=== PATIENT | female | born 2000 | race Caucasian/White ===

== ENCOUNTER 2018-09-26 18:28 | Emergency (ER) | payer OTHER ==
[~2018-09-26] VITALS: Ht 160 cm; Wt 106.8 kg
[2018-09-26] MEDS ORDERED: BUSP10TA (18:37)
[2018-09-26] MEDS ORDERED: TRI-TAB16 (18:37)
[2018-09-26] MEDS ORDERED: ESCI20TA (18:37)
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
[2018-09-26] MEDS ORDERED: IBUPROFEN 600 MG TAB PO ONE (20:00)
[2018-09-26 20:22] LABS: HEMATOCRIT 38.9 % (36.0-47.0); HEMOGLOBIN 13.7 g/dl (12.0-15.5); MEAN CORPUSCULAR HEMOGLOBIN 29.9 pg (27.0-33.0); MEAN CORPUSCULAR HGB CONC 35.2 g/dl (32.0-36.5); MEAN CORPUSCULAR VOLUME 84.9 fl (80.0-96.0); PLATELET COUNT, AUTOMATED 312 10^3/uL (150-450); RED BLOOD COUNT 4.58 10^6/uL (4.00-5.40); WHITE BLOOD COUNT 12.3 10^3/uL (4.0-10.0)
[2018-09-26 20:27] LABS: BLOOD UREA NITROGEN 12 MG/DL (7-18); CREATININE FOR GFR 0.74 MG/DL (0.55-1.30); GLUCOSE, FASTING 88 MG/DL (70-100); SODIUM LEVEL 142 MEQ/L (136-145)
[2018-09-26 20:28] LABS: CALCIUM LEVEL 9.2 MG/DL (8.5-10.1); CARBON DIOXIDE LEVEL 28 MEQ/L (21-32); CHLORIDE LEVEL 107 MEQ/L (98-107); POTASSIUM SERUM 4.1 MEQ/L (3.5-5.1)
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
[2018-09-26 22:02] VITALS: BP 124/81
== END 2018-09-26 22:05 | disposition home or self-care (01) ==
LOC: M ED 18:28
DX: S16.1XXA Strain of muscle, fascia and tendon at neck level, initial encounter (principal); S09.90XA Unspecified injury of head, initial encounter; R55 Syncope and collapse; T14.8XXA Other injury of unspecified body region, initial encounter; V49.49XA Driver injured in collision with other motor vehicles in traffic accident, initial encounter; Y92.410 Unspecified street and highway as the place of occurrence of the external cause; F33.9 Major depressive disorder, recurrent, unspecified; F41.9 Anxiety disorder, unspecified; Z88.0 Allergy status to penicillin; Z88.1 Allergy status to other antibiotic agents; Z79.899 Other long term (current) drug therapy; Z79.3 Long term (current) use of hormonal contraceptives

== ENCOUNTER → 2018-10-28 | Outpatient (CLI) | payer OTHER ==
[~2018-10-28] MED LIST: BUSP10TA; ESCI20TA; TRI-TAB16
[2018-10-28 18:40] LABS: FREE T4 0.9 NG/DL (0.78-1.33); THYROID STIMULATING HORMONE 0.686 uIU/ML (0.463-3.98)
[2018-10-31 00:06] LABS: DEHYDROEPIANDROSTERONE SULFATE 187.3 ug/dL (110.0-433.2); INSULIN LEVEL 23.9 uIU/mL (2.6-24.9); TESTOSTERONE FREE (DIRECT) 1.6 pg/mL (Not Estab.)
== END ==
LOC: M SMT 11:58
PROVIDERS: ATTEND Advanced Practice Midwife
DX: E28.2 Polycystic ovarian syndrome (principal)

== ENCOUNTER → 2019-04-30 | Outpatient (CLI) | payer BC ==
[2019-04-30 18:51] LABS: HEMOGLOBIN A1c 5.4 %
[2019-04-30 19:05] LABS: FREE T4 0.88 NG/DL (0.78-1.33); THYROID STIMULATING HORMONE 1.49 uIU/ML (0.463-3.98)
[2019-04-30 19:06] LABS: PROLACTIN 6.5 NG/ML
== END ==
LOC: M PLALAB 14:23
PROVIDERS: ATTEND Advanced Practice Midwife
DX: N92.6 Irregular menstruation, unspecified (principal)

== ENCOUNTER → 2019-04-30 | Outpatient (REF) | payer BC | LOC: M SFHCWAGY 16:56 | PROVIDERS: ATTEND Advanced Practice Midwife | DX: R10.2 Pelvic and perineal pain (principal) ==

== ENCOUNTER → 2019-05-22 | Outpatient (CLI) | payer BC ==
--- NOTE | 2019-05-26 19:40 | REP ---
Clinical: Pelvic pain. Technique: Transabdominal pelvic ultrasound followed by transvaginal examination for better evaluation of the endometrium and adnexa. Findings: Bladder is unremarkable and measures 15.7 x 9.4 x 10.0 cm . Normal anteverted uterus measures 7.4 x 3.9 x 4.0 cm. Endometrial complex measures 7.0 mm thickness. No discrete uterine or endometrial abnormalities appreciated. Bilateral ovaries are normal in appearance and vascularity without torsion and demonstrate few scattered sub centimeter follicles. Right ovary measures 3.9 x 2.5 x 3.8 cm (RI 0.59). Left ovary measures 3.9 x 1.8 x 2.3 cm (RI 0.72). No pelvic fluid or adnexal mass lesion. Impression: Normal pelvic ultrasound Electronically Signed by Chano Subramanian MD 05/26/2019 07:32 P
== END ==
LOC: M WHC 15:09
PROVIDERS: ATTEND Advanced Practice Midwife
DX: R10.2 Pelvic and perineal pain (principal)

== ENCOUNTER → 2019-09-01 | Outpatient (REF) | payer BC | LOC: M LAB REF 16:45 | PROVIDERS: ATTEND Physician Assistant | DX: N39.0 Urinary tract infection, site not specified (principal) ==

== ENCOUNTER → 2019-11-06 | Outpatient (CLI) | payer BC ==
[2019-11-07 14:11] LABS: HEMOGLOBIN A1c 5.1 %
== END ==
LOC: M PLALAB 12:26
PROVIDERS: ATTEND Advanced Practice Midwife
DX: E28.2 Polycystic ovarian syndrome (principal)

== ENCOUNTER → 2020-04-27 | Outpatient (CLI) | payer BC ==
[~2020-04-27] MED LIST changes: -ESCI20TA; +ESCI20TA16; +ISOVUE-370 76% 100ML VIAL As Ordered ONE
--- NOTE | 2020-04-27 16:57 | REP ---
INDICATION: IRREGULAR PERIODS. COMPARISON: None. TECHNIQUE: The endometrium was cannulated and contrast was injected by the attending pipe stem repairer Dr. Welsh. Fluoroscopic spot films were acquired by [facility] Toml[facility], under the direct supervision of Dr. Downey. Images reviewed prior with Dr. Downey to dictation. FINDINGS: Fluoroscopy spot radiographs document filling of a normal endometrial cavity. There is normal isthmic and ampullary fallopian tube opacification, and bilateral tubal patency was documented. IMPRESSION: Normal hysterosalpingogram with bilateral tubal patency documented. 0.6 minutes of fluoroscopy time was utilized for this procedure. Some fluoroscopic images are performed with last image hold technology. These images require no additional radiation. <Electronically signed by More Tomlinson > 04/27/20 [id number] <Electronically signed by Dilan Downey > 04/27/20 [id number]
--- NOTE | 2020-04-29 14:52 | ROOPDOC ---
[facility] Report Of Operation Report of Operation DATE OF PROCEDURE: 04/29/20 PREPROCEDURE DIAGNOSES: primary infertility. POSTPROCEDURE DIAGNOSES: same. PROCEDURE: hysterosalpingogram. SURGEON: Mateo Rush MD ANESTHESIA: none. ESTIMATED BLOOD LOSS: minimal COMPLICATIONS: none. FINDINGS: normal fill and spill from both fallopian tubes. normal endometrial cavity PROCEDURE NOTE: Pt placed in dorsal lithotomy position. A speculum was placed in the vagina. The cervix was prepped with Betadine. The anterior lip of the cervix was grasped with a tenaculum. An HSG catheter was inserted through the internal os. A fluoroscope was positioned over the patient. A radiology colleague was present. Dye was instilled into the uterus under fluoroscopic guidance. bilateral fill and spill of fallopian tubes was readily observed. All instruments were removed. The patient tolerated the procedure well.. MATEO RUSH MD Apr 29, 2020 14:43
== END ==
LOC: M RADPRO 11:56
PROVIDERS: ATTEND Specialist
DX: N92.6 Irregular menstruation, unspecified (principal)
CPT/HCPCS: 58340; 74740; Q9967

== ENCOUNTER → 2020-05-06 | Outpatient (CLI) | payer BC ==
[~2020-05-06] MED LIST changes: -ISOVUE-370 76% 100ML VIAL As Ordered ONE
[2020-05-06 14:15] LABS: C REACTIVE PROTEIN QUANTITATIV < 0.30 MG/DL (0.00-0.30); RHEUMATOID FACTOR QUANT < 10.0 IU/ML (<15.0)
== END ==
LOC: M PLALAB 10:17
PROVIDERS: ATTEND Physician Assistant
DX: M54.5 Low back pain (principal)

== ENCOUNTER → 2020-06-01 | Outpatient (CLI) | payer BC ==
--- NOTE | 2020-06-01 09:46 | REPVR ---
PROCEDURE INFORMATION: Exam: MR Cervical Spine Without Contrast Exam date and time: 06/01/2020 9:28 AM Age: 19 years old Clinical indication: Neck pain. TECHNIQUE: Imaging protocol: Multiplanar magnetic resonance images of the cervical spine without contrast. COMPARISON: CT Spine,cervical w/o contrast 09/26/2018 7:21 PM FINDINGS: Vertebrae: Unremarkable. Spinal cord: Normal signal. No cord compression. C2-C3: No significant disc disease. No significant spinal stenosis. C3-C4: No significant disc disease. No significant spinal stenosis. C4-C5: No significant disc disease. No significant spinal stenosis. C5-C6: No significant disc disease. No significant spinal stenosis. C6-C7: No significant disc disease. No significant spinal stenosis. C7-T1: No significant disc disease. No significant spinal stenosis. Soft tissues: Unremarkable. IMPRESSION: Unremarkable spine. Electronically signed by: Issac Silva On 06/01/2020 09:46:22 AM
== END ==
LOC: M PLARAD 08:29
PROVIDERS: ATTEND Physician Assistant
DX: M50.323 Other cervical disc degeneration at C6-C7 level (principal)

== ENCOUNTER 2020-06-05 12:25 | Emergency (ER) | payer BC ==
[~2020-06-05] VITALS: Ht 160 cm; Wt 108.5 kg
[2020-06-05 12:26] VITALS: BP 153/82
[2020-06-05] MEDS ORDERED: LETR2.5T2 (12:34)
[2020-06-05] MEDS ORDERED: METF500T13 PO (12:34)
[2020-06-05] MEDS ORDERED: DOXY100T27 PO (12:34)
[2020-06-05] MEDS ORDERED: BACTRIM 160MG/800MG DS TAB PO ONE (12:45)
[2020-06-05] MEDS ORDERED: BACT800T5 PO (12:49)
== END 2020-06-05 14:01 | disposition home or self-care (01) ==
LOC: M ED 12:25
DX: L02.221 Furuncle of abdominal wall (principal); L03.311 Cellulitis of abdominal wall; E11.9 Type 2 diabetes mellitus without complications; Z79.84 Long term (current) use of oral hypoglycemic drugs; Z79.2 Long term (current) use of antibiotics

== ENCOUNTER → 2021-02-19 | Outpatient (CLI) | payer BC ==
[~2021-02-19] MED LIST changes: +BACT800T5 PO; +DOXY100T27 PO; +LETR2.5T2; +METF500T13 PO
== END ==
LOC: M LAB 11:05
PROVIDERS: ATTEND Allergy & Immunology
DX: R10.84 Generalized abdominal pain (principal); R53.81 Other malaise

== ENCOUNTER → 2021-12-12 | Outpatient (CLI) | payer BC ==
[~2021-12-12] MED LIST changes: +CLAR10CA3 PO; +FLUO40CA; +MONT10TA97
== END ==
LOC: M PLALAB 12:19
PROVIDERS: ATTEND Physician Assistant
DX: O20.0 Threatened abortion (principal); Z3A.00 Weeks of gestation of pregnancy not specified

== ENCOUNTER → 2021-12-27 | Outpatient (REF) | payer BC ==
[2021-12-27 17:39] LABS: GC DNA AMPLIFICATION NEGATIVE (NEGATIVE)
== END ==
LOC: M SFHCWAGY 15:08
PROVIDERS: ATTEND Specialist
DX: Z34.01 Encounter for supervision of normal first pregnancy, first trimester (principal)

== ENCOUNTER → 2022-01-03 | Outpatient (CLI) | payer BC ==
[2022-01-03 15:43] LABS: HEMATOCRIT 38.2 % (36.0-47.0); HEMOGLOBIN 12.9 g/dl (12.0-15.5); MEAN CORPUSCULAR HEMOGLOBIN 29.3 pg (27.0-33.0); MEAN CORPUSCULAR HGB CONC 33.8 g/dl (32.0-36.5); MEAN CORPUSCULAR VOLUME 86.8 fl (80.0-96.0); PLATELET COUNT, AUTOMATED 319 10^3/uL (150-450)
[2022-01-03 19:10] LABS: HEPATITIS C VIRUS ABY INDEX < 0.0 INDEX (<0.8); HIV 1&2 SCREEN CENTAUR NEGATIVE (NEGATIVE)
== END ==
LOC: M PLALAB 12:17
PROVIDERS: ATTEND Specialist
DX: Z36.89 Encounter for other specified antenatal screening (principal)

== ENCOUNTER → 2022-01-25 | Outpatient (CLI) | payer OTHER | LOC: M PLALAB 14:13 | PROVIDERS: ATTEND Advanced Practice Midwife | DX: Z34.81 Encounter for supervision of other normal pregnancy, first trimester (principal) ==

== ENCOUNTER → 2022-03-22 | Outpatient (CLI) | payer OTHER | LOC: M WHC 14:32 | PROVIDERS: ATTEND Obstetrics & Gynecology | DX: Z34.92 Encounter for supervision of normal pregnancy, unspecified, second trimester (principal); Z3A.19 19 weeks gestation of pregnancy ==

== ENCOUNTER → 2022-04-19 | Outpatient (CLI) | payer OTHER | LOC: M RAD 16:24 | PROVIDERS: ATTEND Advanced Practice Midwife | DX: Z34.02 Encounter for supervision of normal first pregnancy, second trimester (principal); Z3A.23 23 weeks gestation of pregnancy ==

== ENCOUNTER → 2022-05-19 | Outpatient (CLI) | payer OTHER ==
[2022-05-19 17:13] LABS: HEMATOCRIT 38.1 % (36.0-47.0); HEMOGLOBIN 12.8 g/dl (12.0-15.5); MEAN CORPUSCULAR HEMOGLOBIN 29.8 pg (27.0-33.0); MEAN CORPUSCULAR HGB CONC 33.6 g/dl (32.0-36.5); MEAN CORPUSCULAR VOLUME 88.6 fl (80.0-96.0); PLATELET COUNT, AUTOMATED 323 10^3/uL (150-450); WHITE BLOOD COUNT 9.8 10^3/uL (4.0-10.0)
[2022-05-19 19:02] LABS: GC DNA AMPLIFICATION NEGATIVE (NEGATIVE)
== END ==
LOC: M PLALAB 14:56
PROVIDERS: ATTEND Obstetrics & Gynecology
DX: Z34.92 Encounter for supervision of normal pregnancy, unspecified, second trimester (principal); Z3A.00 Weeks of gestation of pregnancy not specified

== ENCOUNTER → 2022-06-14 | Outpatient (CLI) | payer OTHER | LOC: M WHC 14:27 | PROVIDERS: ATTEND Obstetrics & Gynecology | DX: Z36.2 Encounter for other antenatal screening follow-up (principal); Z3A.30 30 weeks gestation of pregnancy ==

== ENCOUNTER 2022-07-18 17:45 | Outpatient (CLI) | payer OTHER ==
[~2022-07-18] VITALS: Ht 160 cm; Wt 127.0 kg
[~2022-07-18 17:45] MED LIST changes: -PRENMIS3 PO; -TUMS750C22 PO
[2022-07-18 18:26] VITALS: BP 110/71
[2022-07-18] MEDS ORDERED: TUMS750C22 PO (18:28)
[2022-07-18] MEDS ORDERED: PRENMIS3 PO (18:28)
[2022-07-18] MEDS ORDERED: HOME MED LIST COMPLETE! XX SCH (18:30)
[2022-07-18] MEDS ORDERED: ACETAMINOPHEN 500 MG TAB PO ONE (20:00)
[2022-07-18 21:00] LABS: HEMATOCRIT 35.7 % (36.0-47.0); HEMOGLOBIN 12.2 g/dl (12.0-15.5); MEAN CORPUSCULAR HEMOGLOBIN 29.3 pg (27.0-33.0); MEAN CORPUSCULAR HGB CONC 34.2 g/dl (32.0-36.5); MEAN CORPUSCULAR VOLUME 85.8 fl (80.0-96.0); PLATELET COUNT, AUTOMATED 268 10^3/uL (150-450); RED BLOOD COUNT 4.16 10^6/uL (4.00-5.40); WHITE BLOOD COUNT 9.6 10^3/uL (4.0-10.0)
[2022-07-18 21:07] LABS: TOTAL PROTEIN,RANDOM URINE 13.2 MG/DL (0.0-14.0)
[2022-07-18 21:12] LABS: CREATININE,RANDOM URINE 49.5 MG/DL
[2022-07-18] MEDS ORDERED: diphenhydrAMINE 50MG/ML VIAL IV ONE (21:15)
[2022-07-18] MEDS ORDERED: METOCLOPRAMIDE INJ 10MG/2ML VIAL IV ONE (21:15)
[2022-07-18 21:26] LABS: ALBUMIN 2.4 G/DL (3.2-5.2); ALKALINE PHOSPHATASE 121 U/L (46-116); ALT/SGPT 21 U/L (7.0-40); AST/SGOT 17 U/L (<34); BILIRUBIN,TOTAL 0.3 MG/DL (0.3-1.2); BLOOD UREA NITROGEN 5 MG/DL (9-23); CALCIUM LEVEL 8.6 MG/DL (8.5-10.1); CARBON DIOXIDE LEVEL 21 MMOL/L (20-31); CHLORIDE LEVEL 107 MMOL/L (98-107); GLOMERULAR FILTRATION RATE > 60.0 (>60); GLUCOSE, FASTING 70 MG/DL (60-100); POTASSIUM SERUM 3.6 MMOL/L (3.5-5.1); SODIUM LEVEL 140 MMOL/L (136-145); TOTAL PROTEIN 5.4 G/DL (5.7-8.2)
== END 2022-07-18 22:30 | disposition home or self-care (01) ==
LOC: M LDO 17:45
PROVIDERS: ATTEND Obstetrics & Gynecology
DX: O26.893 Other specified pregnancy related conditions, third trimester (principal); R51.9 Headache, unspecified; R25.2 Cramp and spasm; Z3A.36 36 weeks gestation of pregnancy
CPT/HCPCS: 36415; 59025; 80053; 82570; 84156; 85027; 86850; 86900; 86901; 96374; 96375; G0463; J1200; J2765

== ENCOUNTER → 2022-07-18 | Outpatient (CLI) | payer OTHER ==
[~2022-07-18] MED LIST changes: +PRENMIS3 PO; +TUMS750C22 PO
== END ==
LOC: M WHC 06:49
PROVIDERS: ATTEND Obstetrics & Gynecology
DX: Z36.2 Encounter for other antenatal screening follow-up (principal)

== ENCOUNTER → 2022-07-21 | Outpatient (REF) | payer OTHER ==
[~2022-07-21] MED LIST changes: +PRENMIS3 PO; +TUMS750C22 PO
== END ==
LOC: M SFHCWAGY 16:54
PROVIDERS: ATTEND Obstetrics & Gynecology
DX: Z34.03 Encounter for supervision of normal first pregnancy, third trimester (principal)

== ENCOUNTER → 2022-07-21 | Outpatient (REF) | payer OTHER | LOC: M PLALAB 15:17 | PROVIDERS: ATTEND Obstetrics & Gynecology | DX: Z53.9 Procedure and treatment not carried out, unspecified reason (principal) ==

== ENCOUNTER 2022-07-25 17:56 | Outpatient (CLI) | payer OTHER ==
[~2022-07-25] VITALS: Ht 160 cm; Wt 128.0 kg
[2022-07-25] MEDS ORDERED: HOME MED LIST COMPLETE! XX SCH (18:20)
[2022-07-25 18:23] VITALS: BP 126/65
== END 2022-07-25 20:45 | disposition home or self-care (01) ==
LOC: M LDO 17:56
PROVIDERS: ATTEND Specialist
DX: O47.1 False labor at or after 37 completed weeks of gestation (principal); Z3A.37 37 weeks gestation of pregnancy; Z88.0 Allergy status to penicillin; Z88.8 Allergy status to other drugs, medicaments and biological substances
CPT/HCPCS: 59025; G0463

== ENCOUNTER 2022-08-04 11:56 | Inpatient (IN) | payer OTHER ==
[~2022-08-04] VITALS: Ht 160 cm; Wt 126.9 kg
[2022-08-04] VITALS (12 sets, daily range): BP systolic 115–160; BP diastolic 56–77
[2022-08-04] MEDS ORDERED: OMEP10CASR PO (12:16)
[2022-08-04] MEDS ORDERED: HOME MED LIST COMPLETE! XX SCH (12:20)
[2022-08-04 12:50] LABS: HEMATOCRIT 39.7 % (36.0-47.0); HEMOGLOBIN 13.8 g/dl (12.0-15.5); MEAN CORPUSCULAR HEMOGLOBIN 29.7 pg (27.0-33.0); MEAN CORPUSCULAR HGB CONC 34.8 g/dl (32.0-36.5); MEAN CORPUSCULAR VOLUME 85.6 fl (80.0-96.0); PLATELET COUNT, AUTOMATED 286 10^3/uL (150-450); RED BLOOD COUNT 4.64 10^6/uL (4.00-5.40); WHITE BLOOD COUNT 7.8 10^3/uL (4.0-10.0)
[2022-08-04] MEDS ORDERED: METHYLERGONOVINE MALEATE 0.2MG/ML 1ML VIAL IM PRN (13:25)
[2022-08-04] MEDS ORDERED: TRANEXAMIC ACID INJection 1,000 MG in NS 100 ML IV PRN (13:25)
[2022-08-04] MEDS ORDERED: OXYTOCIN DRIP 30 UNITS in IV 1 EA IV PRN (13:25)
[2022-08-04] MEDS ORDERED: CARBOPROST TROMETHAMINE 250 MCG/ML AMP IM PRN (13:25)
[2022-08-04] MEDS ORDERED: LIDOCAINE 1% MDV 20ML VIAL INFIL PRN (13:25)
[2022-08-04] MEDS: miSOPROStol 50MCG 1/2 TABLET PO SCH ×3 (13:40→22:00)
[2022-08-05] VITALS (15 sets, daily range): BP systolic 90–144; BP diastolic 52–89
[2022-08-05] MEDS: miSOPROStol 50MCG 1/2 TABLET PO SCH ×2 (03:02→14:40)
== END 2022-08-05 21:20 | disposition home or self-care (01) | DRG 951 ==
LOC: M LDI 11:56
PROVIDERS: ADMIT Advanced Practice Midwife; ATTEND Specialist
PROC: 3E0P7GC Introduction of Other Therapeutic Substance into Female Reproductive, Via Natural or Artificial Opening (ICD-10-PCS; principal; 2022-08-04)
DX: O61.0 Failed medical induction of labor (principal); Z88.0 Allergy status to penicillin; Z3A.39 39 weeks gestation of pregnancy; Z88.1 Allergy status to other antibiotic agents; Z79.899 Other long term (current) drug therapy

== ENCOUNTER 2022-08-10 07:54 | Inpatient (IN) | payer OTHER ==
[~2022-08-10] VITALS: Ht 160 cm; Wt 128.5 kg
[2022-08-10] VITALS (8 sets, daily range): BP systolic 114–137; BP diastolic 68–77
[~2022-08-10 07:54] MED LIST changes: +OMEP10CASR PO
[2022-08-10] MEDS ORDERED: HOME MED LIST COMPLETE! XX SCH (08:25)
[2022-08-10] MEDS ORDERED: OXYTOCIN DRIP 30 UNITS in IV 1 EA IV PRN (08:35)
[2022-08-10] MEDS ORDERED: LIDOCAINE 1% MDV 20ML VIAL INFIL PRN (08:35)
[2022-08-10] MEDS ORDERED: miSOPROStol 50MCG 1/2 TABLET SL SCH (09:00)
[2022-08-10 09:49] LABS: HEMATOCRIT 37.3 % (36.0-47.0); HEMOGLOBIN 12.7 g/dl (12.0-15.5); MEAN CORPUSCULAR HEMOGLOBIN 29.9 pg (27.0-33.0); MEAN CORPUSCULAR VOLUME 87.8 fl (80.0-96.0); PLATELET COUNT, AUTOMATED 280 10^3/uL (150-450); RED BLOOD COUNT 4.25 10^6/uL (4.00-5.40); WHITE BLOOD COUNT 8.5 10^3/uL (4.0-10.0)
[2022-08-10] MEDS ORDERED: miSOPROStol 50MCG 1/2 TABLET PV SCH (10:00)
[2022-08-10] MEDS ORDERED: OXYTOCIN DRIP 30 UNITS in IV 1 EA IV SCH (13:10)
[2022-08-10] MEDS ORDERED: LR 1,000 ML IV SCH (13:10)
[2022-08-10] MEDS ORDERED: NALBUPHINE HCL 10 MG/ML 1ML AMP IV PRN (19:25)
[2022-08-10] MEDS ORDERED: IBUPROFEN 600MG TAB PO PRN (22:10)
[2022-08-10] MEDS ORDERED: DOCUSATE SODIUM 100MG CAPSULE PO PRN (22:10)
[2022-08-10] MEDS ORDERED: RHOGAM 300MCG (1500IU) INJ IM SCH (22:10)
[2022-08-10] MEDS ORDERED: ACETAMINOPHEN TAB 650MG DOSE (2X325MG) PO PRN (22:10)
[2022-08-10] MEDS ORDERED: IBUPROFEN 800 MG TAB PO PRN (22:10)
[2022-08-10] MEDS ORDERED: DIBUCAINE 1% OINTMENT 30GM TOP PRN (22:10)
[2022-08-10] MEDS ORDERED: METHYLERGONOVINE MALEATE 0.2 MG TAB PO PRN (22:10)
[2022-08-10] MEDS: ACETAMINOPHEN 500 MG TAB PO PRN (22:54)
[2022-08-11] VITALS: BP 135/69
[2022-08-11 06:00] VITALS: BP 131/71
[2022-08-11] MEDS: PRENATAL VITAMINS CHEWABLE TABLET PO SCH (07:43)
[2022-08-11] MEDS: ACETAMINOPHEN 500 MG TAB PO PRN (07:44)
[2022-08-11 18:00] VITALS: BP 134/71
[2022-08-12 05:50] VITALS: BP 139/79
[2022-08-12] MEDS: PRENATAL VITAMINS CHEWABLE TABLET PO SCH (08:29)
[2022-08-12] MEDS: ACETAMINOPHEN 500 MG TAB PO PRN (08:29)
[2022-08-12] MEDS ORDERED: MEASLES,MUMPS,RUBELLA VACCINE INJ (MMR-II) SC.IMMUN ONE (09:00)
== END 2022-08-12 12:34 | disposition home or self-care (01) | DRG 560 ==
LOC: M LDI 07:54 → M OBS 23:50
PROVIDERS: ADMIT Specialist; ATTEND Specialist
PROC: 10E0XZZ Delivery of Products of Conception, External Approach (ICD-10-PCS; principal; 2022-08-10)
PROC: 3E0P7GC Introduction of Other Therapeutic Substance into Female Reproductive, Via Natural or Artificial Opening (ICD-10-PCS; 2022-08-10)
PROC: 0KQM0ZZ Repair Perineum Muscle, Open Approach (ICD-10-PCS; 2022-08-10)
PROC: 10907ZC Drainage of Amniotic Fluid, Therapeutic from Products of Conception, Via Natural or Artificial Opening (ICD-10-PCS; 2022-08-10)
DX: O99.214 Obesity complicating childbirth (principal); E66.9 Obesity, unspecified; Z3A.39 39 weeks gestation of pregnancy; Z37.0 Single live birth; O70.1 Second degree perineal laceration during delivery

== ENCOUNTER 2023-03-17 00:07 | Emergency (ER) | payer OTHER ==
[~2023-03-17] VITALS: Ht 160 cm; Wt 104.5 kg
[2023-03-17] MEDS ORDERED: FLUO20CA22 (00:21)
[2023-03-17] MEDS ORDERED: DEBL1TAB (00:21)
[2023-03-17 02:27] VITALS: BP 185/103; TEMP 96.8; O2SAT 100
== END 2023-03-17 03:25 | disposition left against medical advice (07) ==
LOC: M ED 00:07
DX: Z53.21 Procedure and treatment not carried out due to patient leaving prior to being seen by health care provider (principal)